=== PATIENT | male | born 1940 | race Asian ===

== ENCOUNTER → 2016-10-24 | Outpatient (CLI) | payer MEDICARE, OTHER ==
[~2016-10-24] VITALS: Ht 157.5 cm; Wt 76.0 kg
[~2016-10-24] MED LIST: ALLO100T PO; AMLO-511 PO; ASPI-556 PO; ATOR20TA86 PO; DUTA.5 PO; LATA2.5D2 OU; LOSA1TAB37 PO; METO-323 PO
[2016-10-24 14:07] VITALS: BP 102/49
== END | disposition home or self-care (01) ==
LOC: SRCNTR 13:51
PROVIDERS: ATTEND Internal Medicine Cardiovascular Disease
DX: I12.9 Hypertensive chronic kidney disease with stage 1 through stage 4 chronic kidney disease, or unspecified chronic kidney disease (principal); N18.3 Chronic kidney disease, stage 3 (moderate); I25.10 Atherosclerotic heart disease of native coronary artery without angina pectoris; E78.5 Hyperlipidemia, unspecified; Z95.1 Presence of aortocoronary bypass graft
CPT/HCPCS: G0463

== ENCOUNTER → 2016-12-31 | Outpatient (CLI) | payer MEDICARE, OTHER ==
[~2016-12-31] VITALS: Ht 160 cm; Wt 76.0 kg
[2016-12-31 13:52] VITALS: BP 105/46
== END | disposition home or self-care (01) ==
LOC: SRCNTR 13:51
PROVIDERS: ATTEND Internal Medicine Cardiovascular Disease
DX: I12.9 Hypertensive chronic kidney disease with stage 1 through stage 4 chronic kidney disease, or unspecified chronic kidney disease (principal); N18.3 Chronic kidney disease, stage 3 (moderate); I25.10 Atherosclerotic heart disease of native coronary artery without angina pectoris; E78.5 Hyperlipidemia, unspecified; I25.5 Ischemic cardiomyopathy; Z95.1 Presence of aortocoronary bypass graft
CPT/HCPCS: G0463

== ENCOUNTER → 2017-04-30 | Outpatient (CLI) | payer MEDICARE, OTHER ==
[~2017-04-30] VITALS: Ht 160 cm; Wt 76.0 kg
[~2017-04-30] MED LIST changes: -AMLO-511 PO; -METO-323 PO; +METO25XL PO
[2017-04-30 10:36] VITALS: BP 120/67
== END | disposition home or self-care (01) ==
LOC: SRCNTR 10:34
PROVIDERS: ATTEND Internal Medicine Cardiovascular Disease
DX: I12.9 Hypertensive chronic kidney disease with stage 1 through stage 4 chronic kidney disease, or unspecified chronic kidney disease (principal); I25.10 Atherosclerotic heart disease of native coronary artery without angina pectoris; N18.3 Chronic kidney disease, stage 3 (moderate); E78.5 Hyperlipidemia, unspecified; I49.9 Cardiac arrhythmia, unspecified; Z79.82 Long term (current) use of aspirin; Z95.1 Presence of aortocoronary bypass graft
CPT/HCPCS: G0463

== ENCOUNTER → 2017-05-07 | Outpatient (CLI) | payer MEDICARE, OTHER | END | disposition home or self-care (01) | LOC: RADPV 10:25 | PROVIDERS: ATTEND Internal Medicine Cardiovascular Disease | DX: I08.1 Rheumatic disorders of both mitral and tricuspid valves (principal) | CPT/HCPCS: 93306 ==

== ENCOUNTER → 2017-07-02 | Outpatient (CLI) | payer MEDICARE, OTHER ==
[~2017-07-02] VITALS: Ht 160 cm; Wt 76.0 kg
[~2017-07-02] MED LIST changes: +ACET-2902 PO; +ALLO300 PO; +APIX5TAB PO; +ASPI-989 PO; +CARV3 PO; +FURO20 PO; +KDUR10 PO; +LOSA25TA21 PO; +TAMS0.4C32 PO
[2017-07-02 11:16] VITALS: BP 108/48
== END | disposition home or self-care (01) ==
LOC: SRCNTR 11:03
PROVIDERS: ATTEND Internal Medicine Cardiovascular Disease
DX: I12.9 Hypertensive chronic kidney disease with stage 1 through stage 4 chronic kidney disease, or unspecified chronic kidney disease (principal); N18.3 Chronic kidney disease, stage 3 (moderate); I25.10 Atherosclerotic heart disease of native coronary artery without angina pectoris; I63.9 Cerebral infarction, unspecified; E78.5 Hyperlipidemia, unspecified; I25.5 Ischemic cardiomyopathy; Z95.1 Presence of aortocoronary bypass graft; Z79.899 Other long term (current) drug therapy; Z86.73 Personal history of transient ischemic attack (TIA), and cerebral infarction without residual deficits
CPT/HCPCS: G0463

== ENCOUNTER → 2017-07-15 | Outpatient (CLI) | payer MEDICARE, OTHER ==
[~2017-07-15] VITALS: Ht 160 cm; Wt 75.0 kg
[~2017-07-15] MED LIST changes: -ALLO100T PO; -ASPI-556 PO; -LOSA1TAB37 PO; -METO25XL PO
[2017-07-15 11:04] VITALS: BP 113/56
== END | disposition home or self-care (01) ==
LOC: SRCNTR 10:25
PROVIDERS: ATTEND Internal Medicine Clinical Cardiac Electrophysiology
DX: I11.0 Hypertensive heart disease with heart failure (principal); I50.9 Heart failure, unspecified; E78.00 Pure hypercholesterolemia, unspecified; I25.10 Atherosclerotic heart disease of native coronary artery without angina pectoris; I25.5 Ischemic cardiomyopathy; K21.9 Gastro-esophageal reflux disease without esophagitis; Z79.82 Long term (current) use of aspirin; Z95.1 Presence of aortocoronary bypass graft; Z95.810 Presence of automatic (implantable) cardiac defibrillator
CPT/HCPCS: G0463

== ENCOUNTER → 2017-08-01 | Outpatient (CLI) | payer MEDICARE, OTHER ==
[~2017-08-01] VITALS: Ht 160 cm; Wt 75.0 kg
[2017-08-01 10:02] VITALS: BP 111/53
== END | disposition home or self-care (01) ==
LOC: SRCNTR 09:51
PROVIDERS: ATTEND Internal Medicine Cardiovascular Disease
DX: I12.9 Hypertensive chronic kidney disease with stage 1 through stage 4 chronic kidney disease, or unspecified chronic kidney disease (principal); E11.22 Type 2 diabetes mellitus with diabetic chronic kidney disease; N18.3 Chronic kidney disease, stage 3 (moderate); E78.5 Hyperlipidemia, unspecified; I25.10 Atherosclerotic heart disease of native coronary artery without angina pectoris; I25.5 Ischemic cardiomyopathy; Z79.01 Long term (current) use of anticoagulants; Z79.82 Long term (current) use of aspirin; Z86.73 Personal history of transient ischemic attack (TIA), and cerebral infarction without residual deficits; Z95.1 Presence of aortocoronary bypass graft
CPT/HCPCS: G0463

== ENCOUNTER → 2017-09-09 | Outpatient (CLI) | payer MEDICARE, OTHER ==
[~2017-09-09] VITALS: Ht 160 cm; Wt 74.0 kg
[2017-09-09 12:03] VITALS: BP 109/75
== END | disposition home or self-care (01) ==
LOC: SRCNTR 10:57
PROVIDERS: ATTEND Internal Medicine Clinical Cardiac Electrophysiology
DX: I11.0 Hypertensive heart disease with heart failure (principal); I50.9 Heart failure, unspecified; I48.0 Paroxysmal atrial fibrillation; I25.10 Atherosclerotic heart disease of native coronary artery without angina pectoris; K21.9 Gastro-esophageal reflux disease without esophagitis; E78.00 Pure hypercholesterolemia, unspecified; Z79.01 Long term (current) use of anticoagulants; Z79.82 Long term (current) use of aspirin
CPT/HCPCS: G0463

== ENCOUNTER 2017-09-11 10:02 | Observation (INO) | payer MEDICARE, OTHER ==
[2017-09-11] VITALS (11 sets, daily range): BP systolic 123–158; BP diastolic 55–87
[~2017-09-11] VITALS: Ht 154.9 cm; Wt 77.3 kg
[~2017-09-11 10:02] MED LIST changes: -ACET-2902 PO; +SODIUM CHLORIDE 0.9% 1,000 ML IV ONE
[2017-09-11 10:31] LABS: BASOPHILS % (AUTO) 0.7 % (0.0-2.0); EOSINOPHILS % (AUTO) 10.9 % (1.0-6.0); HEMATOCRIT 43.5 % (41-53); HEMOGLOBIN 14.3 g/dL (13.5-17.5); LYMPHOCYTES # (AUTO) 2.1 K/uL (1.0-4.8); LYMPHOCYTES % (AUTO) 30.7 % (22.0-44.0); MEAN CORPUSCULAR HEMOGLOBIN 31.2 pg (26.0-34.0); MEAN CORPUSCULAR HGB CONC 32.8 G/dL (31.0-37.0); MEAN CORPUSCULAR VOLUME 95 fL (80-100); MONOCYTES # (AUTO) 0.4 K/uL (0.1-1.0); MONOCYTES % (AUTO) 6.4 % (2.0-9.0); NEUTROPHILS # (AUTO) 3.5 K/uL (1.8-7.7); NEUTROPHILS % (AUTO) 51.3 % (40.0-70.0); RED BLOOD CELL COUNT(AUTO) 4.58 MIL/uL (4.50-5.90); RED CELL DISTRIBUTION WIDTH 16.4 % (11.5-14.5)
[2017-09-11 10:37] LABS: CALCIUM, TOTAL 9.3 mg/dL (8.8-10.5); CREATININE 1.24 mg/dL (0.60-1.30); MAGNESIUM 1.9 mg/dL (1.80-2.40); POTASSIUM 4.5 mmol/L (3.5-5.1)
[2017-09-11 10:46] LABS: PLATELET COUNT (AUTO) 93 K/uL (150-450)
[2017-09-11 10:47] LABS: PLATELET MORPHOLOGY COMMENT DECREASED
[2017-09-11 11:19] LABS: INR 1.1 (0.9-1.1); PROTHROMBIN TIME 11.3 SEC (9.4-11.6)
[2017-09-11] MEDS ORDERED: LIDOCAINE HCL/PF 1% 30 ML VIAL ONE ×2 (11:57→12:53)
[2017-09-11] MEDS ORDERED: SODIUM BICARBONATE 50 MEQ/50 ML VIAL ONE (11:57)
[2017-09-11] MEDS ORDERED: BUPIVACAINE HCL/PF 0.25% 30 ML VIAL SQ ONE (12:15)
[2017-09-11] MEDS ORDERED: LIDOCAINE 1% 30 ML/SOD BICARB 8.4% 4 ML SQ ONE (12:15)
[2017-09-11] MEDS ORDERED: BUPIVACAINE LIPOSOME/PF 1.3%-13.3MG/ML SUSPENSION 10 ML VIAL INJ ONE (13:00)
[2017-09-11] MEDS ORDERED: LOSARTAN POTASSIUM 25 MG TABLET PO ONE (14:15)
[2017-09-11] MEDS ORDERED: HYDROCODONE/ACETAMINOPHEN 5-325 MG TABLET PO PRN (14:30)
[2017-09-11] MEDS ORDERED: SODIUM CHLORIDE 0.9% 250 ML IV ONE (17:15)
[2017-09-11] MEDS: ACETAMINOPHEN 325 MG TABLET PO SCH (17:49)
[2017-09-11] MEDS: CeFAZolin SODIUM 1 GM in DEXTROSE 5%-WATER 10 ML IV SCH (18:42)
[2017-09-11] MEDS: CARVEDILOL 3.125 MG TABLET PO SCH (20:33)
[2017-09-11] MEDS ORDERED: LATANOPROST 0.005% 2.5 ML OPHTHALMIC SOLUTION OU SCH (21:00)
[2017-09-11] MEDS ORDERED: ATORVASTATIN CALCIUM 40 MG TABLET PO SCH (21:00)
[2017-09-12] VITALS: BP 116/59
[2017-09-12 00:05] VITALS: BP 116/59
[2017-09-12] MEDS: ACETAMINOPHEN 325 MG TABLET PO SCH ×3 (00:12→11:50)
[2017-09-12] MEDS: CeFAZolin SODIUM 1 GM in DEXTROSE 5%-WATER 10 ML IV SCH ×2 (00:12→06:00)
[2017-09-12 04:00] VITALS: BP 106/58
[2017-09-12 04:43] VITALS: BP 106/58
[2017-09-12] MEDS ORDERED: MIDAZOLAM HCL 2 MG/2 ML VIAL IVP ONE (05:12)
[2017-09-12] MEDS ORDERED: GLYCOPYRROLATE 0.2 MG/ML VIAL IM ONE (05:12)
[2017-09-12] MEDS ORDERED: EPHEDrine SULFATE 50 MG/ML VIAL IM ONE (05:12)
[2017-09-12] MEDS ORDERED: FentaNYL CITRATE-PF 100 MCG/2 ML VIAL IVP ONE (05:12)
[2017-09-12] MEDS ORDERED: PHENYLEPHRINE HCL 10 MG/ML VIAL IVP ONE (05:12)
[2017-09-12] MEDS: CARVEDILOL 3.125 MG TABLET PO SCH (08:12)
[2017-09-12 08:17] VITALS: BP 106/61
[2017-09-12] MEDS ORDERED: FUROSEMIDE 20 MG TABLET PO SCH (09:00)
[2017-09-12] MEDS ORDERED: POTASSIUM CHLORIDE 10 MEQ ER TABLET PO SCH (09:00)
[2017-09-12] MEDS ORDERED: TAMSULOSIN HCL 0.4 MG CAPSULE PO SCH (09:00)
[2017-09-12] MEDS ORDERED: DUTASTERIDE 0.5 MG CAPSULE PO SCH (09:00)
[2017-09-12] MEDS ORDERED: ALLOPURINOL 300 MG TABLET PO SCH (09:00)
[2017-09-12] MEDS ORDERED: ASPIRIN 325 MG TABLET PO SCH (09:00)
[2017-09-12 11:37] VITALS: BP 114/68
[2017-09-12] MEDS ORDERED: ACET-2902 PO (14:26)
[2017-09-26] MEDS ORDERED: CEPH500 PO (10:15)
[2017-09-27] MEDS ORDERED: AMIO200T44 PO (07:54)
[2017-09-29] MEDS ORDERED: ATOR40TA28 PO (15:57)
[2017-09-29] MEDS ORDERED: FURO40 PO (15:57)
== END 2017-09-12 15:32 | disposition home or self-care (01) ==
LOC: 5S 10:02 → INTOOBSV 10:02
PROVIDERS: ADMIT Internal Medicine Clinical Cardiac Electrophysiology; ATTEND Internal Medicine Clinical Cardiac Electrophysiology
DX: I11.0 Hypertensive heart disease with heart failure (principal); I50.22 Chronic systolic (congestive) heart failure; I25.5 Ischemic cardiomyopathy; E78.5 Hyperlipidemia, unspecified; N40.0 Benign prostatic hyperplasia without lower urinary tract symptoms; I48.91 Unspecified atrial fibrillation; Z95.1 Presence of aortocoronary bypass graft; Z95.810 Presence of automatic (implantable) cardiac defibrillator
CPT/HCPCS: 33249; 36415; 71045; 71046; 80048; 83735; 85025; 85610; 85730; 93005; 96374; 96376; C1721; C1892; C1899; G0378 ×2; J0690 ×2; J2250; J2370; J3010; J3490 ×4; J7030; J7050; J7060; Z7610

== ENCOUNTER → 2017-09-17 | Outpatient (CLI) | payer MEDICARE, OTHER ==
[~2017-09-17] VITALS: Ht 160 cm; Wt 74.0 kg
[~2017-09-17] MED LIST changes: +ACET-2902 PO; -SODIUM CHLORIDE 0.9% 1,000 ML IV ONE
[2017-09-17 15:48] VITALS: BP 99/50
== END | disposition home or self-care (01) ==
LOC: SRCNTR 15:42
PROVIDERS: ATTEND Internal Medicine Clinical Cardiac Electrophysiology
DX: Z45.02 Encounter for adjustment and management of automatic implantable cardiac defibrillator (principal); R94.31 Abnormal electrocardiogram [ECG] [EKG]
CPT/HCPCS: 93288; G0463

== ENCOUNTER → 2017-09-22 | Outpatient (CLI) | payer MEDICARE, OTHER ==
[~2017-09-22] VITALS: Ht 160 cm; Wt 75.0 kg
[~2017-09-22] MED LIST changes: +AMIO200T44 PO; +ATOR40TA28 PO; +CEPH500 PO; +FURO40 PO
[2017-09-22 10:38] VITALS: BP 104/58
== END | disposition home or self-care (01) ==
LOC: SRCNTR 10:30
PROVIDERS: ATTEND Internal Medicine Cardiovascular Disease
DX: I12.9 Hypertensive chronic kidney disease with stage 1 through stage 4 chronic kidney disease, or unspecified chronic kidney disease (principal); N18.3 Chronic kidney disease, stage 3 (moderate); I25.10 Atherosclerotic heart disease of native coronary artery without angina pectoris; E78.5 Hyperlipidemia, unspecified; I42.9 Cardiomyopathy, unspecified; I48.91 Unspecified atrial fibrillation; I63.9 Cerebral infarction, unspecified; Z79.01 Long term (current) use of anticoagulants; Z79.82 Long term (current) use of aspirin; Z86.73 Personal history of transient ischemic attack (TIA), and cerebral infarction without residual deficits; Z95.1 Presence of aortocoronary bypass graft; Z95.810 Presence of automatic (implantable) cardiac defibrillator
CPT/HCPCS: G0463

== ENCOUNTER → 2017-09-26 | Outpatient (CLI) | payer MEDICARE, OTHER ==
[~2017-09-26] VITALS: Ht 160 cm; Wt 75.0 kg
[2017-09-26 10:12] VITALS: BP 113/79
== END | disposition home or self-care (01) ==
LOC: SRCNTR 10:10
PROVIDERS: ATTEND Internal Medicine Cardiovascular Disease
DX: I13.0 Hypertensive heart and chronic kidney disease with heart failure and stage 1 through stage 4 chronic kidney disease, or unspecified chronic kidney disease (principal); I50.9 Heart failure, unspecified; N18.3 Chronic kidney disease, stage 3 (moderate); I48.91 Unspecified atrial fibrillation; I42.9 Cardiomyopathy, unspecified; I25.10 Atherosclerotic heart disease of native coronary artery without angina pectoris; E78.5 Hyperlipidemia, unspecified; I25.5 Ischemic cardiomyopathy; Z79.01 Long term (current) use of anticoagulants; Z79.82 Long term (current) use of aspirin; Z86.73 Personal history of transient ischemic attack (TIA), and cerebral infarction without residual deficits; Z95.1 Presence of aortocoronary bypass graft; Z95.0 Presence of cardiac pacemaker
CPT/HCPCS: G0463